=== PATIENT | female | born 1970 | race Two or more races ===

== ENCOUNTER 2023-01-09 13:52 | Emergency (ER) | payer OTHER ==
[~2023-01-09] VITALS: Ht 170.2 cm; Wt 108.0 kg
[2023-01-09] MEDS ORDERED: MEROPENEM1 GM IV (14:43)
[2023-01-09] MEDS ORDERED: METFORMIN HCL1000 M3 PO (14:44)
[2023-01-09] MEDS ORDERED: ALDACTONE25 MG PO (14:46)
[2023-01-09] MEDS ORDERED: HYDRALAZINE HC100 MG PO (14:46)
[2023-01-09] MEDS ORDERED: HYDROCHLOROTHIA50 MG PO (14:47)
[2023-01-09] MEDS ORDERED: NORVASC10 MG PO (14:47)
[2023-01-09] MEDS ORDERED: PEPCID AC20 MG (14:48)
[2023-01-09] MEDS ORDERED: ATORVASTATIN CA80 MG PO (14:48)
[2023-01-09] MEDS ORDERED: COZAAR100 MG PO (14:48)
[2023-01-09] MEDS ORDERED: PLAVIX75 MG PO (14:49)
[2023-01-09 18:42] LABS: HEMATOCRIT 44.9 % (36.0-45.00); HEMOGLOBIN 15.5 g/dL (12.0-15.00); MEAN CELL VOLUME 81.5 fL (80.00-100.00); MEAN CORPUSCULAR HEMOGLOBIN 28.1 pg (27.00-32.0); MEAN CORPUSCULAR HGB CONC 34.5 g/dl (32.0-36.0); PLATELET COUNT 305 K/uL (150-450); RED BLOOD COUNT 5.51 M/uL (4.00-6.00); RED CELL DISTRIBUTION WIDTH 12.3 % (11.5-14.5)
[2023-01-09 18:56] LABS: INR 1.1; PROTHROMBIN TIME 11.5 SECONDS (9.0-11.5)
[2023-01-09 20:21] LABS: ALBUMIN 3.6 gm/dL (3.4-5.0); BILIRUBIN TOTAL 0.76 mg/dL (0.3-1.2); CALCIUM 9.6 mg/dL (8.5-10.1); CREATININE SERUM 1.2 mg/dL (0.55-1.02); GFR 46.64; GLOBULINA 5.2 G/DL (2.4-3.5); TOTAL PROTEIN 8.8 gm/dL (6.4-8.2)
[2023-01-09 20:25] LABS: POTASSIUM 5.14 mEq/L (3.5-5.1)
[2023-01-09 20:53] LABS: ALBUMIN 3.9 gm/dL (3.4-5.0); BILIRUBIN TOTAL 0.55 mg/dL (0.3-1.2); CALCIUM 9.6 mg/dL (8.5-10.1); CREATININE SERUM 1.16 mg/dL (0.55-1.02); GFR 48.5; GLOBULINA 4.8 G/DL (2.4-3.5); POTASSIUM 3.6 mEq/L (3.5-5.1); TOTAL PROTEIN 8.7 gm/dL (6.4-8.2)
== END 2023-01-09 23:00 | disposition designated cancer center or children's hospital (05) ==
LOC: ER 13:52
PROVIDERS: General Practice
DX: I63.9 Cerebral infarction, unspecified (principal); I69.398 Other sequelae of cerebral infarction; R47.01 Aphasia; E11.9 Type 2 diabetes mellitus without complications; Z79.84 Long term (current) use of oral hypoglycemic drugs; I10 Essential (primary) hypertension; Z20.822 Contact with and (suspected) exposure to COVID-19

== ENCOUNTER 2023-10-27 11:20 | Emergency (ER) | payer OTHER ==
[~2023-10-27] VITALS: Ht 167.6 cm; Wt 93.0 kg
[~2023-10-27 11:20] MED LIST: ALDACTONE25 MG PO; ATORVASTATIN CA80 MG PO; COZAAR100 MG PO; HYDRALAZINE HC100 MG PO; HYDROCHLOROTHIA50 MG PO; MEROPENEM1 GM IV; METFORMIN HCL1000 M3 PO; NORVASC10 MG PO; PEPCID AC20 MG; PLAVIX75 MG PO
[2023-10-27] MEDS ORDERED: ACETAMINOPHEN 500 MG GEL..CAP PO ONE ×2 (12:15→12:18)
[2023-10-27] MEDS ORDERED: BENZONATATE 100 MG CAPSULE PO ONE (12:15)
[2023-10-27 12:59] LABS: HEMATOCRIT 39.5 % (36.0-45.00); HEMOGLOBIN 13.4 g/dL (12.0-15.00); MEAN CELL VOLUME 81.8 fL (80.00-100.00); MEAN CORPUSCULAR HEMOGLOBIN 27.7 pg (27.00-32.0); MEAN CORPUSCULAR HGB CONC 33.9 g/dl (32.0-36.0); PLATELET COUNT 210 K/uL (150-450); RED BLOOD COUNT 4.83 M/uL (4.00-6.00); RED CELL DISTRIBUTION WIDTH 12.7 % (11.5-14.5)
== END 2023-10-27 15:29 | disposition home or self-care (01) ==
LOC: ER 11:21
PROVIDERS: General Practice
DX: J06.9 Acute upper respiratory infection, unspecified (principal); I69.322 Dysarthria following cerebral infarction; Z88.0 Allergy status to penicillin; Z88.6 Allergy status to analgesic agent; I10 Essential (primary) hypertension; Z20.822 Contact with and (suspected) exposure to COVID-19; E11.9 Type 2 diabetes mellitus without complications; Z79.84 Long term (current) use of oral hypoglycemic drugs; I63.89 Other cerebral infarction